=== PATIENT | female | born 1975 | race Caucasian/White ===

== ENCOUNTER 2018-09-18 14:49 | Emergency (ER) ==
[2018-09-18 14:57] VITALS: BP 116/77; TEMP 98; BMI 25.0
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
== END 2018-09-18 16:17 | disposition left against medical advice (07) ==
LOC: ED 14:49
DX: M54.5 Low back pain (principal); R07.89 Other chest pain; R10.30 Lower abdominal pain, unspecified; M25.511 Pain in right shoulder; M25.551 Pain in right hip; S05.11XA Contusion of eyeball and orbital tissues, right eye, initial encounter; V49.9XXA Car occupant (driver) (passenger) injured in unspecified traffic accident, initial encounter; F17.210 Nicotine dependence, cigarettes, uncomplicated

== ENCOUNTER → 2018-09-18 | Emergency (ER) ==
[2018-09-18 14:57] VITALS: BMI 25.0
== END ==
LOC: ED 14:45
DX: V89.2XXA Person injured in unspecified motor-vehicle accident, traffic, initial encounter (principal)